=== PATIENT | female | born 1955 | race Hispanic/Latino ===

== ENCOUNTER → 2021-08-05 | Outpatient (CLI) | payer OTHER | END | disposition home or self-care (01) | LOC: RAH 14:47 | PROVIDERS: ATTEND Family Medicine | DX: Z12.31 Encounter for screening mammogram for malignant neoplasm of breast (principal); R92.1 Mammographic calcification found on diagnostic imaging of breast | CPT/HCPCS: 77067 ==

== ENCOUNTER → 2023-03-28 | Outpatient (CLI) | payer OTHER | END | disposition home or self-care (01) | LOC: RAH 10:47 | PROVIDERS: ATTEND Family Medicine | DX: Z12.31 Encounter for screening mammogram for malignant neoplasm of breast (principal) | CPT/HCPCS: 77067 ==

== ENCOUNTER → 2024-05-06 | Outpatient (CLI) | payer OTHER, MEDICARE ==
--- NOTE | 2024-05-07 09:21 | HMCIMG ---
Exam Type: MAMMO SCREENING BILATERAL Clinical Information: ROUTINE SCREENING Comparison: March 28, 2023 Technique: Mammogram with CAD was performed with CC and MLO projections. CAD shows no worrisome regions. FINDINGS: The breasts are heterogeneously dense, which may obscure small masses. No dominant mass or suspicious microcalcification identified. There is no nipple retraction or skin thickening. Benign-appearing calcifications are seen. CAD shows no worrisome regions. IMPRESSION: 1. No mammographic signs of malignancy. 2. Routine follow-up recommended. CATEGORY 2: BENIGN FINDINGS Note: A negative x-ray should not delay biopsy if a dominant or clinically suspicious mass is present, since 8-10% of cancers are not identified by mammography. Dense breasts may obscure an underlying neoplasm.
== END | disposition home or self-care (01) ==
LOC: RAH 10:47
PROVIDERS: ATTEND Family Medicine
DX: Z12.31 Encounter for screening mammogram for malignant neoplasm of breast (principal); R92.333 Mammographic heterogeneous density, bilateral breasts
CPT/HCPCS: 77067

== ENCOUNTER 2025-01-20 21:33 | Emergency (ER) | payer OTHER, MEDICARE ==
[~2025-01-20] VITALS: Ht 157.5 cm; Wt 135.2 kg
--- NOTE | 2025-01-20 22:00 | ERN ---
ED Note History of Present Illness Stated Complaint: C/O PAIN TO KNEES, TO BODY AFTER FALL Chief Complaint: Mechanical Fall Time Seen by MD: 21:42 Dictation: This is a 69-year-old morbidly obese female who presented to the emergency room complaining of bilateral knee pains. She stated that she tripped and fell today and injured only the knees. Patient is Frisian-speaking and son offered the collateral information. He stated that she was attempting to order picker a small toy from the floor and lost balance fell forward and tried to hold on with her knuckles and avoid injury to any other parts. She did sustain some injury to the knee. She denied any injury to the head loss of consciousness. She denied any blurred vision diplopia motor weakness or seizure activity. She does not take any anticoagulation on a regular basis. She described it as she basically tripped and fell and did not have any aura, dizziness, headache. No chest pain pressure PND orthopnea Temperature 98.5 pulse 86 respirations 20 blood pressure 171/75 with a pulse ox imetry of 97% on room air BMI 54.5 Patient has chronic medical problems include diabetes mellitus, hypertension, hypothyroidism and depression Allergies: Coded Allergies: No Known Allergies (Unverified Allergy, Unknown, 01/20/25) Past Medical History Past Medical History: Depression, Diabetes-Type II, Hypertension, Hypothyroid Surgical History: Hysterectomy, Cholecystectomy Family History: Negative Social History: Negative History: Not Applicable RN Note Reviewed/Agreed w/PFSH: Yes Review of System Dictation Constitutional: Negative for fever,chills, and weight loss Eyes: Negative for injury, pain,redness, and discharge ENT: Negative for injury,pain or swelling Cardiovascular: Negative for chest pain, palpitations, and edema Respiratory: Negative for shortness of breath, cough, and wheezing, Abdomen/GI: Negative for abdominal pain, nausea, vomiting, diarrhea, and constipation Back: Negative for injury and pain : Negative for injury, bleeding and discharge MS/Extremity: Positive for a fall and bilateral knee pain Skin: Negative for rash, and discoloration Neuro: Negative for headache, weakness, numbness, tingling, and seizure Psych: Negative for suicide ideation, homicidal ideation, and hallucinations Initial Vital Sign VS Vital Signs Date Time Temp Pulse Resp B/P (MAP) Pulse Ox O2 Delivery O2 Flow Rate FiO2 01/20/25 21:38 98.4 86 20 171/75 97 01/20/25 21:46 Room Air* 0 21 Physical Exam Dictation General: awake, alert, NAD extremely obese lady Head/Face: Normocephalic, atraumatic Eyes: PERRL, EOMI, vision at baseline ENT: oral cavity clear, TMs clear, no signs of infection Neck: Trachea midline, supple, no nuchal rigidity Cardiovascular: RRR, normal S1/S2, No MRGs, no JVD Respiratory: CTAB, no respiratory distress, No rales or wheezes Abdomen: Soft, non-tender, non-distended, normal bowel sounds, no guarding or rebound. Skin: Warm, dry, normal turgor, no rash MS/Extremity: Pulses equal, no cyanosis, neurovascular intact, FROM no ecchymosis. Mild swelling tenderness in the left posterior popliteal fossa- Olmedo's cyst Neuro: COAx4, GCS 15, strength 5/5, CN 2-12 intact, normal cerebellar exam, normal gait, Psych: Normal behavior, mood, and affect normal Extremities-trace edema without any palpable cords, Homans sign is negative Results (Laboratory/Radiology) Labs Reviewed?: Yes X-RAY Comment: REASON: PAIN ORDERING PHYSICIAN: YOSELIN PURCELL MD PROCEDURE: KNEE 3VBIL - KNEE 3 VW BILATERAL EXAM: CR bilateral Knee, 3 views. CLINICAL HISTORY: Pain. COMPARISON: None provided. FINDINGS: No acute fracture or aggressive appearing osseous lesion. Medial tibio-femoral joint spaces are reduced on both sides. Osteophytic lipping of the articular margin is noted. There is no joint effusion appreciated. The soft tissues are unremarkable. IMPRESSION: No acute osseous abnormality. Medial tibio-femoral joint spaces are reduced on both sides. Osteophytic lipping of the articular margin is noted. /[place] DICTATED BY: HUNTER OROZCO Jr., MD DATE: 01/21/25119 ELECTRONICALLY SIGNED BY: HUNTER OROZCO Jr., MD DATE: 01/21/25119 ED Course ED Course Orders Procedure Category Date Status Time Knee 3 Vw Bilateral RAD 01/20/25 Resulted 21:51 Ketorolac PHA 01/20/25 Complete Tromethamine 30mg/Ml 23:00 Ketorolac PHA 01/20/25 Complete Tromethamine 30mg/Ml 23:05 Current Medications Medications (Trade) Dose Ordered Sig/[place] Route PRN Reason Start Time Stop Time Status Last Admin Dose Admin Ketorolac Tromethamine (toRADol) 30 mg ONCE ONCE IM 01/20/25 23:00 01/20/25 23:10 DC 01/20/25 23:11 Ketorolac Tromethamine (toRADol) 30 mg STK-MED ONCE .ROUTE 01/20/25 23:05 01/20/25 23:05 DC Vital Signs Date Time Temp Pulse Resp B/P (MAP) Pulse Ox O2 Delivery O2 Flow Rate FiO2 01/21/25 00:34 98.4 82 20 162/74 97 Room Air* 0 21 01/20/25 21:46 98.4 86 20 171/75 97 Room Air* 0 21 01/20/25 21:38 98.4 86 20 171/75 97 We will perform imaging and administer medications according to the patient's complaint. Once the results are available, will review and personally interpreted the labs to rule out any acute life-threatening emergency the trach require immediate intervention and treatment. I will then re-evaluate the patient after treatment and diagnostic exams have return to determine whether the patient requires any further testing, can safely be discharged home or need further admission to hospital for additional treatment and evaluation. Medical Decision Making MDM Differential diagnosis: Contusion, ligament tear, meniscus tear, osteoarthritis, bursitis, fracture of patella This is a 69-year-old morbidly obese female who presented to the emergency room complaining of bilateral knee pains. She stated that she tripped and fell today and injured only the knees. Patient is Frisian-speaking and son offered the collateral information. He stated that she was attempting to order picker a small toy from the floor and lost balance fell forward and tried to hold on with her knuckles and avoid injury to any other parts. She did sustain some injury to the knee. She denied any injury to the head loss of consciousness. She denied any blurred vision diplopia motor weakness or seizure activity. She does not take any anticoagulation on a regular basis. She described it as she basically tripped and fell and did not have any aura, dizziness, headache. No chest pain pressure PND orthopnea Temperature 98.5 pulse 86 respirations 20 blood pressure 171/75 with a pulse oximetry of 97% on room air BMI 54.5 Patient has chronic medical problems include diabetes mellitus, hypertension, hypothyroidism and depression X-rays of the knees results took forever to be completed. No evidence of any obvious fracture but Evidence of narrowing suggesting some arthritic changes. I updated the patient and her son and she responded to symptomatic Toradol treatment. She will be discharged to home to follow up with her primary care physician Rationale: Tests considered and ordered secondary to shared decision making include: Previous outside records reviewed: Old ER visits. Risk of complication and/or morbidity or mortality of patient management: None Medications-Per medication reconciliation Need for hospitalization: Patient does not meet criteria for hospitalization. Need for emergency major/minor surgery: No There are no social concerns with this patient. Prescription drug management Prescriptions will include symptomatic care Patient's prior external medical records from other ER visits were reviewed by me as indicated. Prior testing and results from previous visits were reviewed. Prior tests were taken into account with medical decision making and resource utilization, independent historian/historians were used to obtain complete medical history. I independently interpreted the test that were performed, results were reviewed by me and considered findings on radiology if ordered. Medical management and examination interpretation discussions were had by me with other qualified healthcare professionals as indicated for the patient's care. Problem List Problem List: (1) Fall from standing (2) Bilateral knee pain (3) Osteoarthritis (4) Morbid obesity DX & DISP Disposition: Discharge Departure Impression: Primary Impression: Bilateral knee pain Additional Impressions: Osteoarthritis, Fall from standing, Morbid obesity Condition: Stable Additional Instructions: Patient and the caregiver have been informed of all the diagnostic tests and the imaging conducted during the today's visit to the emergency room and has verbalized understanding of the results I have personally reviewed and interpreted all diagnostic exams performed here in the ER today as well as the vital signs documented by the nursing staff. The patient is now being discharged to home and should follow up with the primary care physician or the specialist as directed by the ER staff. Instructions to place ice pack. [id number] Tylenol or Motrin as needed for pain. Patient must lose weight. Extensive counseling on lifestyle modifications weight loss diet and exercise and appropriate timing of her levothyroxine were discussed with the patient. Patient's son was also present. Referrals: MELISSA GALARZA M.D. (PCP) YOSELIN PURCELL MD Jan 20, 2025 22:00
--- NOTE | 2025-01-21 00:20 | HMCIMG ---
EXAM: CR bilateral Knee, 3 views. CLINICAL HISTORY: Pain. COMPARISON: None provided. FINDINGS: No acute fracture or aggressive appearing osseous lesion. Medial tibio-femoral joint spaces are reduced on both sides. Osteophytic lipping of the articular margin is noted. There is no joint effusion appreciated. The soft tissues are unremarkable. IMPRESSION: No acute osseous abnormality. Medial tibio-femoral joint spaces are reduced on both sides. Osteophytic lipping of the articular margin is noted. /[place]
[2025-01-21 00:34] VITALS: BP 162/74; PULSE 82; RESP 20; TEMP 98.4; O2SAT 97
== END 2025-01-21 00:36 | disposition home or self-care (01) ==
LOC: EDH 21:33
DX: M25.561 Pain in right knee (principal); M25.562 Pain in left knee; M17.0 Bilateral primary osteoarthritis of knee; E03.9 Hypothyroidism, unspecified; E11.9 Type 2 diabetes mellitus without complications; E66.01 Morbid (severe) obesity due to excess calories; I10 Essential (primary) hypertension; Z90.49 Acquired absence of other specified parts of digestive tract; Z90.710 Acquired absence of both cervix and uterus; W01.0XXA Fall on same level from slipping, tripping and stumbling without subsequent striking against object, initial encounter; Y93.89 Activity, other specified; Y92.89 Other specified places as the place of occurrence of the external cause; Y99.8 Other external cause status
CPT/HCPCS: 99283; 73562; 96372; J1885